=== PATIENT | female | born 1945 | race Caucasian/White ===

== ENCOUNTER → 2016-07-06 | Outpatient (CLI) | payer MEDICARE, BC | END | disposition home or self-care (01) | LOC: CFH 10:20 | PROVIDERS: ATTEND Nurse Practitioner Family | DX: Z12.31 Encounter for screening mammogram for malignant neoplasm of breast (principal); M85.80 Other specified disorders of bone density and structure, unspecified site; M81.0 Age-related osteoporosis without current pathological fracture | CPT/HCPCS: 77080; G0202 ==

== ENCOUNTER → 2016-09-07 | Outpatient (CLI) | payer MEDICARE, BC | END | disposition home or self-care (01) | LOC: CFH 06:51 | PROVIDERS: ATTEND Nurse Practitioner Family | DX: M47.896 Other spondylosis, lumbar region (principal); M51.36 Other intervertebral disc degeneration, lumbar region; M48.06 Spinal stenosis, lumbar region; M12.88 Other specific arthropathies, not elsewhere classified, other specified site; M41.86 Other forms of scoliosis, lumbar region; K57.30 Diverticulosis of large intestine without perforation or abscess without bleeding | CPT/HCPCS: 72148; 72195 ==

== ENCOUNTER → 2017-05-27 | Outpatient (CLI) | payer MEDICARE, BC ==
[~2017-05-27] MED LIST: GADOBUTROL 7.5 MMOL/7.5 ML PFS ONE
[2017-05-27 12:00] LABS: CREATININE 0.74 mg/dL (0.55-1.02)
== END | disposition home or self-care (01) ==
LOC: RAD 11:20
PROVIDERS: ATTEND Nurse Practitioner Family
DX: G31.89 Other specified degenerative diseases of nervous system (principal)
CPT/HCPCS: 36415; 70553; 82565; A9585

== ENCOUNTER → 2018-06-05 | Outpatient (CLI) | payer MEDICARE, BC ==
[2018-06-05 13:09] LABS: CREATININE 0.76 mg/dL (0.55-1.02)
== END | disposition home or self-care (01) ==
LOC: RAD 12:13
PROVIDERS: ATTEND Nurse Practitioner Family
DX: R41.3 Other amnesia (principal)
CPT/HCPCS: 36415; 70553; 82565

== ENCOUNTER → 2018-08-25 | Outpatient (CLI) | payer MEDICARE, BC | END | disposition home or self-care (01) | LOC: CFH 11:45 | PROVIDERS: ATTEND Nurse Practitioner Family | DX: R92.2 Inconclusive mammogram (principal) | CPT/HCPCS: 76642; 77065; G0279 ==

== ENCOUNTER → 2018-12-22 | Outpatient (CLI) | payer MEDICARE, BC ==
[~2018-12-22] MED LIST changes: -GADOBUTROL 7.5 MMOL/7.5 ML PFS ONE; +LIDOCAINE-MPF 1%, 5ML ONE
== END | disposition home or self-care (01) ==
LOC: RAD 12:27
PROVIDERS: ATTEND Nurse Practitioner Family
DX: E04.1 Nontoxic single thyroid nodule (principal)
CPT/HCPCS: 10005; 88112; 88173

== ENCOUNTER 2019-04-03 08:40 | Outpatient (CLI) | payer MEDICARE, BC | END 2019-04-03 23:59 | disposition home or self-care (01) | LOC: CFH 08:40 | PROVIDERS: ATTEND Nurse Practitioner Family | DX: M85.88 Other specified disorders of bone density and structure, other site (principal); N95.9 Unspecified menopausal and perimenopausal disorder; Z13.820 Encounter for screening for osteoporosis; Z78.0 Asymptomatic menopausal state | CPT/HCPCS: 77080 ==

== ENCOUNTER 2019-05-06 12:11 | Emergency (ER) | payer MEDICARE, BC ==
[~2019-05-06] VITALS: Ht 160 cm; Wt 65.0 kg
[2019-05-06 12:39] VITALS: BP 122/72
--- NOTE | 2019-05-06 12:45 | NUR ---
Late Entry: Pt ambulated to room, in ENT chair, NAD, denies additional needs, WCTM.
--- NOTE | 2019-05-06 13:09 | NUR ---
Eric law in EDM - 05/06/19 at 1324 by AREN Pt ambulated to room, changed into gown, placed on gujagdish, NAD, even and unlabored respirations, call light within reach, at bedside, SEN.
--- NOTE | 2019-05-06 13:10 | NUR ---
Eric law in ED - 05/06/19 at 1324 by AREN Pt ambulated to bathroom with smooth and steady gait. Urine sample collected and sent to lab. SEN.
--- NOTE | 2019-05-06 13:30 | NUR ---
Late Entry: Law MD at bedside performing assessment and discussing plan of care. EBONI, SEN
== END 2019-05-06 14:09 | disposition home or self-care (01) ==
LOC: ED 13:47
DX: H10.023 Other mucopurulent conjunctivitis, bilateral (principal); B30.3 Acute epidemic hemorrhagic conjunctivitis (enteroviral); I25.10 Atherosclerotic heart disease of native coronary artery without angina pectoris; M19.90 Unspecified osteoarthritis, unspecified site; Z90.49 Acquired absence of other specified parts of digestive tract; Z90.710 Acquired absence of both cervix and uterus; Z98.61 Coronary angioplasty status
CPT/HCPCS: 99283